=== PATIENT | female | born 1965 | race American Indian/Alaskan Native ===

== ENCOUNTER 2016-11-20 11:58 | Emergency (ER) | payer MEDICARE ==
[2016-11-20 12:27] VITALS: BP 138/79
--- NOTE | 2016-11-20 12:35 | Emergency Department Report ---
ED Extremity Problem HPI - General Chief complaint: Extremity Problem,Nontraumatic Stated complaint: RIGHT FOOT INJURY Time Seen by Provider: 11/20/16 12:35 Source: patient Mode of arrival: Ambulatory Limitations: No Limitations - History of Present Illness -: During the night, Last night, unknown Location: right, lower extremity, other (patient complaining of atraumatic right foot and ankle swelling.) -: Yes arthralgia - Related Data Home Medications Medication Instructions Recorded Confirmed Last Taken Lisinopril [Zestril] 20 mg PO QDAY 09/22/13 03/13/16 09/20/14 Previous Rx's Medication Instructions Recorded Last Taken Type Carisoprodol [Soma] 350 mg PO Q8H PRN #21 tablet 09/22/13 09/20/14 Rx Famotidine [Pepcid] 20 mg PO DAILY #30 tablet 09/27/14 Unknown Rx Ondansetron [Zofran Odt] 8 mg PO TID PRN #20 tab.rapdis 09/27/14 Unknown Rx Oxycodone HCl/Acetaminophen 1 each PO Q6HR PRN #20 tablet 11/16/14 Unknown Rx [Percocet 10/325 mg] Acetaminophen/Codeine [Tylenol #3] 1 tab PO Q6H PRN #12 tab 11/26/14 Unknown Rx ALPRAZolam [Xanax TAB] 0.25 mg PO BID PRN #12 tablet 03/13/16 Unknown Rx Ciprofloxacin 0.3% (Nf) 2.5 ml OP BID #1 bottle 03/13/16 Unknown Rx [Ciprofloxacin OPTH] predniSONE [Deltasone] 50 mg PO QDAY #5 tab 03/13/16 Unknown Rx traMADol [Ultram 50 MG tab] 50 mg PO Q4HR PRN #10 tablet 11/20/16 Unknown Rx Allergies Allergy/AdvReac Type Severity Reaction Status Date / Time ibuprofen Allergy Hives Verified 09/22/13 04:06 ED Review of Systems ROS: Stated complaint: RIGHT FOOT INJURY Other details as noted in HPI Constitutional: no symptoms reported Eyes: as per HPI ENT: as per HPI Respiratory: no symptoms reported Cardiovascular: denies: chest pain, palpitations, dyspnea on exertion Gastrointestinal: denies: abdominal pain, nausea, vomiting, diarrhea Musculoskeletal: joint swelling, arthralgia Skin: denies: rash, lesions Neurological: denies: headache ED Past Medical Hx - Past Medical History Hx Hypertension: Yes Hx Headaches / Migraines: Yes Additional medical history: Herniated disk, brain hemorrhage, ITP - Surgical History Additional Surgical History: TUBE PLACED IN LEFT GROIN TO RECEIVE BLOOD PRODUCTS. - Social History Smoking Status: Never Smoker Substance Use Type: None - Medications Home Medications: Home Medications Medication Instructions Recorded Confirmed Last Taken Type Carisoprodol [Soma] 350 mg PO Q8H PRN #21 tablet 09/22/13 03/13/16 09/20/14 Rx Lisinopril [Zestril] 20 mg PO QDAY 09/22/13 03/13/16 09/20/14 History Famotidine [Pepcid] 20 mg PO DAILY #30 tablet 09/27/14 03/13/16 Unknown Rx Ondansetron [Zofran Odt] 8 mg PO TID PRN #20 tab.rapdis 09/27/14 03/13/16 Unknown Rx Oxycodone HCl/Acetaminophen 1 each PO Q6HR PRN #20 tablet 11/16/14 03/13/16 Unknown Rx [Percocet 10/325 mg] Acetaminophen/Codeine [Tylenol #3] 1 tab PO Q6H PRN #12 tab 11/26/14 03/13/16 Unknown Rx ALPRAZolam [Xanax TAB] 0.25 mg PO BID PRN #12 tablet 03/13/16 Unknown Rx Ciprofloxacin 0.3% (Nf) 2.5 ml OP BID #1 bottle 03/13/16 Unknown Rx [Ciprofloxacin OPTH] predniSONE [Deltasone] 50 mg PO QDAY #5 tab 03/13/16 Unknown Rx traMADol [Ultram 50 MG tab] 50 mg PO Q4HR PRN #10 tablet 11/20/16 Unknown Rx ED Physical Exam - General Limitations: No Limitations General appearance: alert, in no apparent distress - Head Head exam: Present: atraumatic, normocephalic - Eye Eye exam: Present: normal appearance, PERRL, EOMI - ENT ENT exam: Present: mucous membranes moist - Neck Neck exam: Present: normal inspection, full ROM - Respiratory Respiratory exam: Present: normal lung sounds bilaterally. Absent: respiratory distress, wheezes, rales, rhonchi, stridor - Cardiovascular Cardiovascular Exam: Present: regular rate - Expanded Lower Extremity Exam Left Ankle exam: Present: tenderness, swelling, ecchymosis. Absent: deformity, crepidus, dislocation Foot/Toe exam: Present: tenderness, swelling, ecchymosis. Absent: deformity, crepidus Neuro vascular tendon exam: Present: no vascular compromise. Absent: pulse deficit, abnormal cap refill Gait: Positive: antalgic - Neurological Exam Neurological exam: Present: alert, oriented X3 - Skin Skin exam: Present: warm, dry, intact ED Course Vital Signs 11/20/16 12:22 Temperature 98.2 F Pulse Rate 111 H Respiratory 20 Rate Blood Pressure 138/79 O2 Sat by Pulse 98 Oximetry Critical care attestation.: If time is entered above; I have spent that time in minutes in the direct care of this critically ill patient, excluding procedure time. ED Disposition Clinical Impression: Ankle sprain Disposition: DISCHARGED TO HOME OR SELFCARE Is pt being admited?: No Condition: Stable Prescriptions: traMADol [Ultram 50 MG tab] 50 mg PO Q4HR PRN #10 tablet PRN Reason: Pain Referrals: PRIMARY CARE, [Primary Care Provider] - 3-5 Days Forms: Work/School Release Form(ED)
--- NOTE | 2016-11-20 13:39 | XRay Report ---
Right ankle 3 views: History: Right ankle pain and swelling. Findings: Soft tissue swelling. No acute abnormality. No fracture or dislocation. Impression: Soft tissue swelling. No acute fracture.
--- NOTE | 2016-11-20 13:40 | XRay Report ---
Right foot 3 views: History: Right foot pain and swelling. Findings: No bony or articular abnormality. No fracture dislocation or periosteal reaction. No soft tissue calcification. Impression: Essentially negative right foot.
== END 2016-11-20 14:52 | disposition home or self-care (01) ==
LOC: ED 11:58
DX: S93.401A Sprain of unspecified ligament of right ankle, initial encounter (principal); I10 Essential (primary) hypertension; G43.909 Migraine, unspecified, not intractable, without status migrainosus; X58.XXXA Exposure to other specified factors, initial encounter; Y93.9 Activity, unspecified; Y92.9 Unspecified place or not applicable; Y99.9 Unspecified external cause status
CPT/HCPCS: 99283

== ENCOUNTER 2016-11-30 16:36 | Outpatient (CLI) | payer MEDICARE ==
--- NOTE | 2016-12-01 07:39 | XRay Report ---
Cervical spine 4 views: History: Radiculopathy. Findings: Normal vertebral bodies. Decrease in height of C4-C5 and C5-C6 sclerotic adjacent articular surfaces with peripheral osteophytes suggestive of cervical spondylosis. No fracture. Normal prevertebral soft tissue. Impression: Spondylosis mid cervical spine.
--- NOTE | 2016-12-01 07:41 | XRay Report ---
Lumbosacral spine: History: Low back pain. Radiculopathy. Findings: Normal height of vertebral bodies. Decrease in height of L4-5 and L5-S1. Sclerotic adjacent articular surfaces with early degenerative changes. Degenerative changes are more pronounced in the facet joints. No definite evidence of acute fracture. Impression: Findings as detailed above.
== END 2016-11-30 16:37 | disposition home or self-care (01) ==
LOC: MRI 16:36
PROVIDERS: ATTEND Radiology Diagnostic Radiology
DX: M47.892 Other spondylosis, cervical region (principal); M47.897 Other spondylosis, lumbosacral region; M54.12 Radiculopathy, cervical region; M54.16 Radiculopathy, lumbar region; M25.78 Osteophyte, vertebrae
CPT/HCPCS: 72050; 72110